=== PATIENT | female | born 1970 | race Caucasian/White ===

== ENCOUNTER → 2021-04-11 14:13 | Outpatient (CLI) | payer OTHER, SELFPAY ==
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
== END ==
PROVIDERS: PCP Counselor Mental Health; Referring Provider Physical Medicine & Rehabilitation; Visit Provider Physical Medicine & Rehabilitation
DX: M54.41 Lumbago with sciatica, right side; M54.42 Lumbago with sciatica, left side; M53.3 Sacrococcygeal disorders, not elsewhere classified; M25.551 Pain in right hip; M48.07 Spinal stenosis, lumbosacral region; G89.29 Other chronic pain
CPT/HCPCS: 72148; 73721

== ENCOUNTER → 2021-07-22 13:23 | Outpatient (CLI) | payer OTHER, SELFPAY ==
--- NOTE | 2021-07-22 13:29 | DI.RAD.S_ITS ---
PROCEDURE: XR LUMBAR SPINE MIN 4V INDICATIONS: BACK PAIN TECHNIQUE: 5 views of the lumbar spine were acquired, including bilateral oblique views. COMPARISON: [facility], MR, MR LUMBAR SPINE WO CON, 04/11/2021, 14:54. FINDINGS: Bones: 5 [id number] vertebrae are present. There is normal bony alignment. No vertebral body compression fractures. No suspicious bony lesions. Mild degenerative disc disease and bilateral facet arthropathy at L4-L5. Soft tissues: Overlying bowel gas pattern is normal. No suspicious soft tissue calcifications. Oblique images: No pars defects. IMPRESSION: Mild degenerative disc disease and bilateral facet arthropathy at L4-L5. Dictated by: Kristian Villanueva M.D. on 07/22/2021 at 17:57 Approved by: Kristian Villanueva M.D. on 07/23/2021 at 8:47
--- NOTE | 2021-07-22 13:29 | DI.RAD.S_ITS ---
PROCEDURE: XR SHOULDER RT MIN 2V INDICATIONS: RIGHT SHOULDER PAIN TECHNIQUE: 3 views of the shoulder were acquired. COMPARISON: None. FINDINGS: Bones: No fractures or dislocations. Mild acromioclavicular joint and glenohumeral joint osteoarthritic changes are seen. No suspicious bony lesions. Visualized ribs appear intact. Soft tissues: Small calcification adjacent to greater tuberosity of humeral head is seen suggestive of calcific tendinitis. IMPRESSION: No shoulder fracture or dislocation. Mild shoulder joint osteoarthritis. Suggestion of calcific tendinosis involving distal rotator cuff tendon at humeral insertion. Dictated by: Charles Floyd M.D. on 07/22/2021 at 15:21 Approved by: Charles Floyd M.D. on 07/22/2021 at 15:21
--- NOTE | 2021-07-22 13:29 | DI.RAD.S_ITS ---
PROCEDURE: XR CERVICAL SPINE 4V OR 5V INDICATIONS: NECK PAIN TECHNIQUE: 5 views of the cervical spine acquired. COMPARISON: None. FINDINGS: Bones: No fractures or dislocations to the C7 level. Oblique images demonstrate no bony foraminal stenoses. Soft tissues: No prevertebral soft tissue swelling. IMPRESSION: No acute fracture. No osseous lesion. If symptoms and/or clinical suspicion for pathology persist, further assessment with repeat, or advanced imaging (e.g., CT, MRI, or bone scan) may be helpful for further assessment. Dictated by: Juana Lockwood M.D. on 07/22/2021 at 15:13 Approved by: Juana Lockwood M.D. on 07/22/2021 at 15:14
== END ==
PROVIDERS: PCP Counselor Mental Health; Referring Provider Physical Medicine & Rehabilitation; Visit Provider Physical Medicine & Rehabilitation
DX: M19.011 Primary osteoarthritis, right shoulder (principal); M51.16 Intervertebral disc disorders with radiculopathy, lumbar region; M47.26 Other spondylosis with radiculopathy, lumbar region; M54.2 Cervicalgia; M25.511 Pain in right shoulder; M53.3 Sacrococcygeal disorders, not elsewhere classified; G89.29 Other chronic pain
CPT/HCPCS: 72050; 72110; 73030

== ENCOUNTER → 2021-10-26 09:58 | Outpatient (CLI) | payer OTHER, SELFPAY ==
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
== END ==
PROVIDERS: PCP Counselor Mental Health; Referring Provider Physical Medicine & Rehabilitation; Visit Provider Physical Medicine & Rehabilitation
DX: S73.191A Other sprain of right hip, initial encounter (principal); Z96.641 Presence of right artificial hip joint
CPT/HCPCS: 73522

== ENCOUNTER → 2023-07-20 09:24 | Outpatient (CLI) | payer OTHER, SELFPAY ==
--- NOTE | 2023-07-20 09:26 | DI.RAD.S_ITS ---
PROCEDURE: XR RIBS RT MIN 3V W CXR 1V INDICATIONS: chronic right chest wall pain TECHNIQUE: 2 views of the ribs were acquired, along with a single view chest. COMPARISON: None. FINDINGS: Surgical changes and devices: None. Bones and chest wall: No fractures or dislocations. No suspicious bony lesions. Overlying soft tissues appear unremarkable. Lungs and pleura: No pleural effusions or pneumothorax. Lungs appear clear. Mediastinum: Mediastinal contours appear normal. Heart size is normal. IMPRESSION: No displaced rib fracture or pneumothorax. Dictated by: Poncho Parrish M.D. on 07/20/2023 at 14:39 Approved by: Poncho Parrish M.D. on 07/20/2023 at 14:39
== END ==
PROVIDERS: PCP Counselor Mental Health; Referring Provider Physical Medicine & Rehabilitation; Visit Provider Physical Medicine & Rehabilitation
DX: M99.08 Segmental and somatic dysfunction of rib cage (principal); M70.61 Trochanteric bursitis, right hip; M75.41 Impingement syndrome of right shoulder; M41.25 Other idiopathic scoliosis, thoracolumbar region; M47.812 Spondylosis without myelopathy or radiculopathy, cervical region; M70.71 Other bursitis of hip, right hip; Z98.890 Other specified postprocedural states
CPT/HCPCS: 20611; 71101; 99214; J0702

== ENCOUNTER → 2023-10-19 13:47 | Outpatient (CLI) | payer OTHER, SELFPAY ==
--- NOTE | 2023-10-19 13:48 | DI.RAD.S_ITS ---
PROCEDURE: XR HIP W PEL IF DONE DIMITRY MIN 4V INDICATIONS: RIGHT HIP PAIN TECHNIQUE: AP pelvis with lateral view(s) of the right and left hip(s). COMPARISON: [facility], , XR HIP W PEL IF DONE DIMITRY 3TO4V, 10/26/2021, 9:57. FINDINGS: Bones: No fractures or dislocations. Pelvic ring appears intact. No suspicious bony lesions. Soft tissues: The visualized bowel gas pattern is normal. No suspicious soft tissue calcifications. IMPRESSION: No acute bony abnormality. Dictated by: Grace Epstein MD, PhD on 10/19/2023 at 14:51 Approved by: Grace Epstein MD, PhD on 10/19/2023 at 14:52
== END ==
PROVIDERS: PCP Counselor Mental Health; Referring Provider Physical Medicine & Rehabilitation; Visit Provider Physical Medicine & Rehabilitation
DX: M70.61 Trochanteric bursitis, right hip (principal); M25.551 Pain in right hip
CPT/HCPCS: 73522

== ENCOUNTER → 2023-10-19 16:06 | Outpatient (CLI) | payer OTHER, SELFPAY ==
[2023-10-19 16:56] LABS: Add Manual Diff / Slide Review NO; Basophils Absolute Auto 0 /uL (0-100); Basophils Percent Auto 0.9 % (0-2); Eosinophils Absolute Auto 100 /uL (0-450); Eosinophils Percent Auto 2.2 % (2-4); Hematocrit 35.6 % (36-46); Hemoglobin 12.3 g/dL (12.0-16.0); Lymphocytes Absolute Auto 1800 /uL (1100-4500); Mean Corpuscular HGB Conc 34.5 % (30-36); Mean Corpuscular Hemoglobin 31.8 PG (26-34); Mean Corpuscular Volume 92.2 fL (80-100); Monocytes Absolute Auto 500 /uL (0-900); Monocytes Percent Auto 8.7 % (3-14); Neutrophils Absolute Auto 3200 /uL (1500-7000); Neutrophils Percent Auto 56.2 % (50-75); Platelet Count 230 X10^3/uL (150-400); Red Blood Cell Count 3.86 X10^6/uL (4.0-5.2); Red Cell Distribution Width 13.3 % (11.6-14.8); White Blood Cell Count 5.6 X10^3/uL (4.5-11.0)
[2023-10-19 17:27] LABS: Erythrocyte Sedimentation Rate 25 MM/HR (0-20)
[2023-10-19 17:52] LABS: C-Reactive Protein Quant < 0.5 mg/dL (<1.0); Rheumatoid Factor < 8.6 IU/mL (<12.0)
[2023-10-19 18:09] LABS: Vitamin D 25 Hydroxy (D3) 34.1 ng/mL (30.0-100.0)
[2023-10-19 18:22] LABS: TSH w/ Reflex to FT4 < 0.02 uIU/mL (0.47-4.68)
[2023-10-19 18:40] LABS: Vitamin B12 849 pg/mL (239-931)
[2023-10-19 19:14] LABS: Free T4, Direct Thyroxine 0.92 ng/dL (0.78-2.19)
== END ==
PROVIDERS: PCP Counselor Mental Health; Referring Provider Physical Medicine & Rehabilitation; Visit Provider Physical Medicine & Rehabilitation
DX: M79.18 Myalgia, other site (principal)
CPT/HCPCS: 36415; 82306; 82607; 84439; 84443; 85025; 85651; 86038; 86140; 86430

== ENCOUNTER 2023-11-29 08:59 | Outpatient (CLI) | payer OTHER, SELFPAY ==
[2023-11-29] VITALS (11 sets, daily range): BP systolic 94–118; BP diastolic 52–63; PULSE 55–76; RESP 9–18; TEMP 36.6; O2SAT 97–99
--- NOTE | 2023-11-29 09:45 | DI.RAD.S_ITS ---
PROCEDURE: PAIN C/T INTERLAMINAR INJECT INDICATIONS: C6-7 translaminar TRINITY COMPARISON: None. FINDINGS: Fluoroscopic spot filming was performed to verify placement of spinal needles at the C6-7 level(s), as labeled on the films. Appropriate location(s) of the needle tip(s) was confirmed by injection of iodinated contrast. IMPRESSION: Fluoro guidance was provided intraoperatively for C6-7 translaminar a TRINITY performed by ordering physician. Dictated by: Charles Floyd M.D. on 11/29/2023 at 12:13 Approved by: Charles Floyd M.D. on 11/29/2023 at 12:16
[2023-11-29] MEDS: SODIUM CHLORIDE 0.9% 500 ML 1000 ML IV (10:12)
[2023-11-29] MEDS: MIDAZOLAM 2 MG/2 ML VIAL 1 MG IV ×2 (10:16→10:22)
[2023-11-29] MEDS: iopamidoL 15 ML VIAL 3 ML INJ (10:22)
[2023-11-29] MEDS: BUPIVACAINE 0.25% (PF) VIAL 2 ML INJ (10:23)
[2023-11-29] MEDS: DEXAMETHASONE 10 MG/ML VIAL 20 MG INJ (10:23)
--- NOTE | 2023-11-29 10:39 | PC.NURSE ---
IV fluid bolus complete
--- NOTE | 2023-11-29 10:43 | P.PCN_ITS ---
Date/Time/Diagnoses Date of procedure: 11/29/23 Time of procedure: 10:43 Pre-procedure diagnosis: 1. CERVICAL STENOSIS, 2. CERVICAL HNP WITH UPPER EXTREMITY RADICULAR FEATURES Post-procedure diagnosis: same Procedure Notes Procedure: 1. FLUORSCOPICALLY GUIDED CONTRAST CONTROLLED INTERLAMINAR EPIDURAL STEROID INJECTION - C6/7 TL TRINITY Indications: Ria is referred by Dr. Jordan for treatment of Cervical HNP with Upper Extremity Paresthesias. Physician: Neno Spann Total Fluoroscopy time (seconds): 19 Total sedation minutes: 13 Complications: none Procedure in detail & Post-procedure care: FINDINGS Cervical Stenosis due to disc deterioration and nerve root irritation and nerve root irritation DESCRIPTION OF PROCEDURE Fluoroscopically guided, contrast-controlled C6/7 translaminar epidural steroid injection with conscious sedation. Following review of allergy and review of potential side effects and complications, including, but not necessarily limited to, infection, allergic reaction, local tissue breakdown, temporary as well as permanent nerve injury, stroke, paralysis, and possible , the patient indicated that patient understood and agreed to proceed. An informed consent document was signed by the patient, witnessed by a nurse, and placed in the patient's chart. Additionally, other treatment options including modalities, medications, and physical therapy were reviewed with the patient. After review of previous anaesthesic history and IV conscious sedation the patient was deemed safe to proceed with today?s procedure with IV conscious sedation as ASA class II designation. Safety time-out was performed to confirm patient ID, procedure to be performed and site of procedure. IV sedation was accomplished with a combination of 2mg of Versed administered by the RN after DO order, titrated to patient comfort during the course of the procedure while the patient remained responsive to all verbal commands. In the prone position, following sterile prep and drape of the cervical region, the C6/7 translaminar space was identified fluoroscopically. The skin was anesthetized via a 25-gauge 1.5-inch needle with 1% lidocaine solution. At this point, a 25-gauge, 2.5-inch short bevel spinal needle was atraumatically introduced and advanced under fluoroscopic guidance into epidural space at the C6/7 translaminar space. Depth was confirmed on lateral view. Radiological data, including multiple fluoroscopic views of the cervical spine, reveal a spinal needle at the C6/7 translaminar space. Lateral views then show placement of the needle in the epidural space. Subsequent views show contrast material flowing superiorly and inferiorly in the epidural space. DSA fluoroscopy with live contrast injection, once again, confirmed no vascular or intrathecal uptake. At this point, using loss of resistance technique with saline and air, the epidural space was entered. Following negative aspiration, injection of approximately 1.5 cc of Isovue-200 with live fluoroscopy in the AP view confirmed epidural flow in the epidural space without vascular or intrathecal uptake observed. Subsequently, a test dose of 1 cc of 1% lidocaine solution was injected and patient was observed for two minutes without signs or symptoms of complications, including abdominal pain, shortness of breath, bilateral upper or lower extremity weakness, nausea and vomiting, prior to steroid injection. At this point, 2cc or 20mg of dexamethasone was then injected without incident. The patient tolerated the procedure well without signs or symptoms of compli cations prior to being transferred to the recovery area for further monitoring, The patient was then transferred to the recovery area where they were observed for an appropriate period of time after the injection. The patient reported a VAS score of 6 prior to the procedure and a post-procedure VAS of 0. POST OP INSTRUCTIONS The patient was provided a Pain Log to continue to record their response to the target-specific procedure prior to follow-up visit with the referring provider. Additionally, specific post-injection care instructions and a contact number to our office were provided if concerns arise regarding possible complications associated with the procedure are suspected.
--- NOTE | 2023-11-30 14:39 | PC.NURSE ---
1439 Post procedural call made. Patient did not answer. Message left advising the patient to call the clinic if she has any questions or concerns.
== END 2023-11-29 11:00 | disposition home or self-care (01) ==
LOC: RAD 08:59
PROVIDERS: PCP Counselor Mental Health; Referring Provider Physical Medicine & Rehabilitation; Visit Provider Physical Medicine & Rehabilitation
DX: M48.02 Spinal stenosis, cervical region (principal); M50.123 Cervical disc disorder at C6-C7 level with radiculopathy
CPT/HCPCS: 62321; 99152; J1100; J2250; J3490

== ENCOUNTER 2024-03-15 08:56 | Outpatient (CLI) | payer OTHER, SELFPAY ==
[2024-03-15] VITALS (8 sets, daily range): BP systolic 100–119; BP diastolic 56–65; PULSE 54–64; RESP 9–18; TEMP 36.6; O2SAT 97–100
--- NOTE | 2024-03-15 09:15 | DI.RAD.S_ITS ---
PROCEDURE: PAIN C/T FACET INJ/BLK 1ST L INDICATIONS: Right C4-5 and C5-6 facet joint injection COMPARISON: None. FINDINGS: Fluoroscopic spot filming was performed to verify placement of spinal needles at the right C4-C5 and C5-C6 level(s), as labeled on the films. Appropriate location(s) of the needle tip(s) was confirmed by injection of iodinated contrast. IMPRESSION: Intra procedural examination demonstrating appropriate positions of the needles. Dictated by: Elias Flowers M.D. on 03/15/2024 at 11:03 Approved by: Elias Flowers M.D. on 03/15/2024 at 11:03
[2024-03-15] MEDS: SODIUM CHLORIDE 0.9% 500 ML 1000 ML IV (09:56)
[2024-03-15] MEDS: MIDAZOLAM 2 MG/2 ML VIAL 1 MG IV ×2 (09:57→10:01)
[2024-03-15] MEDS: DEXAMETHASONE 10 MG/ML VIAL 20 MG INJ (10:03)
[2024-03-15] MEDS: BUPIVACAINE 0.5% (PF) 10 ML VIAL 2 ML INJ (10:03)
[2024-03-15] MEDS: iopamidoL 15 ML VIAL 3 ML INJ (10:04)
--- NOTE | 2024-03-15 10:15 | P.PCN_ITS ---
Date/Time/Diagnoses Date of procedure: 03/15/24 Time of procedure: 10:16 Pre-procedure diagnosis: 1. FACET ARTHROPATHY 2. AXIAL NECK PAIN Post-procedure diagnosis: same Procedure Notes Procedure: 1. FLUOROSCOPICALLY GUIDED, CONTRAST-CONTROLLED RIGHT C4/5, C5/6 FACET JOINT INJECTIONS WITH CONSCIOUS SEDATION. Indications: Ria is referred by Dr. Haney for treatment of Axial Neck Pain Physician: Neno Spann Total Fluoroscopy time (seconds): 15 Total sedation minutes: 16 Complications: none Procedure in detail & Post-procedure care: DESCRIPTION OF PROCEDURE Fluoroscopically guided, contrast-controlled right C4/5, C5/6 facet joint injections with conscious sedation. Following review of allergy and review of potential side effects and complications, including, but not necessarily limited to, infection, allergic reaction, local tissue breakdown, stroke, temporary or permanent nerve injury and paralysis, the patient indicated that the patient understood and agreed to proceed. An informed consent document was signed by the patient, witnessed by a nurse, and placed in the patient's chart. Additionally, other treatment options including medications, modalities, and physical therapy were reviewed with the patient. After review of previous anaesthesic history and IV conscious sedation the patient was deemed safe to proceed with today?s procedure with IV conscious sedation as ASA class II designation. Safety time-out was performed to confirm patient ID, procedure to be performed and site of procedure. IV sedation was accomplished with a combination of 2mg of Versed was administered by the RN after DO order, titrated to patient comfort during the course of the procedure while the patient remained responsive to all verbal commands In the prone position, following sterile prep and drape of the cervical spine region, the posterior aspect of the right C4/5, C5/6 facet joints were identified fluoroscopically. The skin was anesthetized via a 25-gauge 1.5-inch needle with 1% lidocaine solution into the corresponding facet joints. At this point, a 25-gauge 2.5-inch spinal needle was atraumatically introduced and advanced under fluoroscopic guidance into the corresponding facet joints. Following negative aspiration, injections of approximately 0.2-cc of Isovue 200 confirmed interarticular placement without vascular uptake. At this point, a total of 1 cc including 0.5 cc or 5 mg of dexamethasone combined with 0.5 cc of 1% lidocaine solution was injected without complication into each of the corresponding facet joints. The procedure tolerated the procedure well without signs or symptoms of complications prior to transfer to the recovery area continued monitoring without incident. The patient was then transferred to the recovery area where they were observed for an appropriate period of time after the injection. The patient reported a VAS score of 8 prior to the procedure and a post- procedure VAS of 2. POST OP INSTRUCTIONS They were provided a Pain Log to continue to record their response to the target-specific procedure prior to their follow-up visit with their referring physician. Additionally, specific post-injection care instructions and a contact number to our office were provided if concerns arise regarding possible complications associated with the procedure are suspected.
== END 2024-03-15 10:34 | disposition home or self-care (01) ==
LOC: RAD 08:57
PROVIDERS: PCP Counselor Mental Health; Referring Provider Physical Medicine & Rehabilitation; Visit Provider Physical Medicine & Rehabilitation
DX: M47.812 Spondylosis without myelopathy or radiculopathy, cervical region (principal)
CPT/HCPCS: 64490; 64491; 99152; J1100; J2250

== ENCOUNTER 2024-12-06 08:51 | Outpatient (CLI) | payer OTHER, SELFPAY ==
[2024-12-06] VITALS (9 sets, daily range): BP systolic 98–109; BP diastolic 51–63; PULSE 56–70; RESP 16; TEMP 36.1; O2SAT 97–99
[2024-12-06] MEDS: MIDAZOLAM 2 MG/2 ML VIAL IV ×2 (09:36→09:42)
[2024-12-06] MEDS: DEXAMETHASONE 10 MG/ML VIAL 20 MG INJ (09:41)
[2024-12-06] MEDS: iopamidoL 15 ML VIAL 3 ML INJ (09:41)
[2024-12-06] MEDS: BUPIVACAINE 0.25% (PF) VIAL 2 ML INJ (09:41)
--- NOTE | 2024-12-06 10:00 | PM.PROC.IR.1 ---
Date/Time/Diagnoses Date of procedure: 12/06/24 Time of procedure: 10:00 Pre-procedure diagnosis: 1. CERVICAL STENOSIS, 2. CERVICAL HNP WITH UPPER EXTREMITY RADICULAR FEATURES Post-procedure diagnosis: same Procedure Notes Procedure: 1. FLUORSCOPICALLY GUIDED CONTRAST CONTROLLED INTERLAMINAR EPIDURAL STEROID INJECTION - C6/7 TL TRINITY Indications: Ria is referred for treatment of Cervical HNP with Upper Extremity Paresthesias. Physician: Neno Spann Total Fluoroscopy time (seconds): 27 Total sedation minutes: 19 Complications: none Procedure in detail & Post-procedure care: FINDINGS Cervical Stenosis due to disc deterioration and nerve root irritation and nerve root irritation DESCRIPTION OF PROCEDURE Fluoroscopically guided, contrast-controlled C6/7 translaminar epidural steroid injection with conscious sedation. Following review of allergy and review of potential side effects and complications, including, but not necessarily limited to, infection, allergic reaction, local tissue breakdown, temporary as well as permanent nerve injury, stroke, paralysis, and possible , the patient indicated that patient understood and agreed to proceed. An informed consent document was signed by the patient, witnessed by a nurse, and placed in the patient's chart. Additionally, other treatment options including modalities, medications, and physical therapy were reviewed with the patient. After review of previous anaesthesic history and IV conscious sedation the patient was deemed safe to proceed with today?s procedure with IV conscious sedation as ASA class II designation. Safety time-out was performed to confirm patient ID, procedure to be performed and site of procedure. IV sedation was accomplished with a combination of 2mg of Versed administered by the RN after DO order, titrated to patient comfort during the course of the procedure while the patient remained responsive to all verbal commands. In the prone position, following sterile prep and drape of the cervical region, the C6/7 translaminar space was identified fluoroscopically. The skin was anesthetized via a 25-gauge 1.5-inch needle with 1% lidocaine solution. At this point, a 25-gauge, 2.5-inch short bevel spinal needle was atraumatically introduced and advanced under fluoroscopic guidance into epidural space at the C6/7 translaminar space. Depth was confirmed on lateral view. Radiological data, including multiple fluoroscopic views of the cervical spine, reveal a spinal needle at the C6/7 translaminar space. Lateral views then show placement of the needle in the epidural space. Subsequent views show contrast material flowing superiorly and inferiorly in the epidural space. DSA fluoroscopy with live contrast injection, once again, confirmed no vascular or intrathecal uptake. At this point, using loss of resistance technique with saline and air, the epidural space was entered. Following negative aspiration, injection of approximately 1.5 cc of Isovue-200 with live fluoroscopy in the AP view confirmed epidural flow in the epidural space without vascular or intrathecal uptake observed. Subsequently, a test dose of 1 cc of 1% lidocaine solution was injected and patient was observed for two minutes without signs or symptoms of complications, including abdominal pain, shortness of breath, bilateral upper or lower extremity weakness, nausea and vomiting, prior to steroid injection. At this point, 2cc or 20mg of dexamethasone was then injected without incident. The patient tolerated the procedure well without signs or symptoms of complications prior to being transferred to the recovery area for further monitoring, The patient was then transferred to the recovery area where they were observed for an appropriate period of time after the injection. The patient reported a VAS score of 7 prior to the procedure and a post-procedure VAS of 1. POST OP INSTRUCTIONS The patient was provided a Pain Log to continue to record their response to the target-specific procedure prior to follow-up visit with the referring provider. Additionally, specific post-injection care instructions and a contact number to our office were provided if concerns arise regarding possible complications associated with the procedure are suspected.
== END 2024-12-06 10:20 | disposition home or self-care (01) ==
LOC: RAD 08:53
PROVIDERS: Referring Provider Physical Medicine & Rehabilitation; Visit Provider Physical Medicine & Rehabilitation
DX: M48.02 Spinal stenosis, cervical region (principal); M50.123 Cervical disc disorder at C6-C7 level with radiculopathy
CPT/HCPCS: 62321; 99152; 99153; J1100; J2250